=== PATIENT | female | born 1965 | race Caucasian/White ===

== ENCOUNTER → 2016-10-12 | Outpatient (CLI) | payer BC ==
--- NOTE | 2016-10-12 09:01 | USB ---
Reason for exam: clinical finding. History: Family history of breast cancer in paternal grandmother and breast cancer in paternal aunt. Benign US biopsy breast VAD LT of the left breast, March 08, 2016. Taking hormonal contraceptives beginning at age 19. Indicated problem(s): other indicated problem in the left breast. Physical Findings: Nurse did not find any significant physical abnormalities on exam. US Breast LT Left breast ultrasound including all four quadrants, the retroareolar region and axilla demonstrates a 1.2 x 0.5 x 0.9cm oval, hypoechoic lesion at 11 o'clock, clip seen. Findings compatible with the previously biopsied benign lesion. These results were verbally communicated with the patient and result sheet given to the patient on 10/12/16. ASSESSMENT: Benign, BI-RAD 2 RECOMMENDATION: Return to routine screening mammogram schedule for both breasts. Back on schedule.
== END | disposition home or self-care (01) ==
LOC: RADUSWWP 08:05
PROVIDERS: ATTEND Obstetrics & Gynecology
DX: R92.8 Other abnormal and inconclusive findings on diagnostic imaging of breast (principal)

== ENCOUNTER → 2017-04-16 | Outpatient (CLI) | payer BC ==
--- NOTE | 2017-04-18 11:15 | MM ---
Reason for exam: screening (asymptomatic). Last mammogram was performed 1 year and 1 month ago. History: Family history of breast cancer in paternal grandmother and breast cancer in paternal aunt. Benign US biopsy breast VAD LT of the left breast, March 08, 2016. Taking hormonal contraceptives beginning at age 19. Physical Findings: A clinical breast exam by your physician is recommended on an annual basis and results should be correlated with mammographic findings. MG Screening Mammo w CAD Bilateral CC and MLO view(s) were taken. Prior study comparison: March 08, 2016, left breast MG diagnostic mammo LT wo CAD. March 08, 2016, left breast MG 3d work up w/cad LT. The breast tissue is heterogeneously dense. This may lower the sensitivity of mammography. There is no discrete abnormality. ASSESSMENT: Negative, BI-RAD 1 RECOMMENDATION: Routine screening mammogram of both breasts in 1 year.
== END | disposition home or self-care (01) ==
LOC: RADMAMWWP 16:19
PROVIDERS: ATTEND Obstetrics & Gynecology
DX: Z12.31 Encounter for screening mammogram for malignant neoplasm of breast (principal)

== ENCOUNTER → 2018-01-21 | Outpatient (CLI) | payer BC ==
[2018-01-21 17:28] LABS: Basophils # (A) 0.1 k/uL (0-0.2); Basophils % (A) 1 %; Eosinophils # (A) 0.1 k/uL (0-0.7); Eosinophils % (A) 1 %; HCT 38.7 % (34.0-46.0); HGB 13.2 gm/dL (11.4-16.0); Lymphocytes # (A) 2.8 k/uL (1.0-4.8); Lymphocytes % (A) 35 %; MCH 29.6 pg (25.0-35.0); MCHC 34.1 g/dL (31.0-37.0); MCV 86.8 fL (80.0-100.0); Monocytes # (A) 0.4 k/uL (0-1.0); Monocytes % (A) 4 %; Neutrophils # (A) 4.7 k/uL (1.3-7.7); Neutrophils % (A) 57 %; Platelet Count 275 k/uL (150-450); RBC 4.45 m/uL (3.80-5.40); RDW 12.9 % (11.5-15.5); WBC 8.1 k/uL (3.8-10.6)
[2018-01-21 17:37] LABS: Anion Gap 13 mmol/L; Blood Urea Nitrogen 10 mg/dL (7-17); Carbon Dioxide 26 mmol/L (22-30); Chloride 103 mmol/L (98-107); Glucose 108 mg/dL (74-99); Potassium 4.1 mmol/L (3.5-5.1); Sodium 142 mmol/L (137-145)
== END | disposition home or self-care (01) ==
LOC: LABPAT 16:51
PROVIDERS: ATTEND Obstetrics & Gynecology
DX: Z01.812 Encounter for preprocedural laboratory examination (principal); D25.9 Leiomyoma of uterus, unspecified; N94.6 Dysmenorrhea, unspecified
CPT/HCPCS: 36415; 80051; 82565; 82947; 84520; 85025; 87086

== ENCOUNTER 2018-01-28 05:47 | Observation (INO) | payer BC ==
[2018-01-17 11:02] VITALS: BMI 28.8
--- NOTE | 2018-01-27 16:15 | HP ---
HISTORY AND PHYSICAL DATE OF SURGERY: 01/28/2018 This is a 52-year-old white female who has a known history of fibroid uterus. In particular, there is a 6 cm posterior uterine fibroid noted. Sonogram suggests normal- appearing ovaries bilaterally. The patient has had a tubal ligation. She complains of very heavy painful periods, and has a history of NovaSure endometrial ablation. I suspect the patient has adenomyosis, and after thorough consultation, she is electing to proceed with vaginal hysterectomy, having given to 2 large infants vaginally in the past. We have discussed the possibility of the need for abdominal hysterectomy, and to this she consents. She would like to have the ovaries stay in situ if they appear normal to inspection. PAST MEDICAL HISTORY: 1. Sleep disturbance. 2. Generalized hyperhidrosis. 3. Fibroid uterus. PAST SURGICAL HISTORY: 1. Endometrial ablation in 2014. 2. Rectocele repair in 1998. 3. Tubal ligation in 2014. 4. Diagnostic colonoscopy negative. 5. Patient has also had her adenoids removed. CURRENT MEDICATIONS: 1. Krill oil 500 mg oral capsules once daily. 2. Vitamin B12 and vitamin D orally daily. ALLERGIES: PENICILLIN, to which reports a rash. She also has SEASONAL ALLERGIES. FAMILY HISTORY: Significant for breast cancer, dementia, diabetes, endometriosis, hyperthyroidism, and Parkinson's disease. REPRODUCTIVE HISTORY: Significant for normal spontaneous vaginal deliveries x2 in the , both unremarkable. SOCIAL HISTORY: Patient's 's name is Jake. She has never been a tobacco smoker. She works for [employer] in [place], [place]. She denies drug use, admits to 1-4 alcoholic beverages daily. PHYSICAL EXAMINATION: This is a pleasant white female. She is 5 feet 5 inches, 174 pounds, BMI 29, blood pressure 110/80. HEENT exam reveals good dentition. No thyromegaly. No cervical lymphadenopathy. Chest is clear to auscultation in all trevizo. Cardiac exam reveals regular rate and rhythm with no murmur, click or rub. Abdomen is nontender. No organosplenomegaly. Active bowel sounds. No CVA tenderness. Extremities reveal no edema. There are good peripheral pulses. On pelvic exam, cervix is multiparous. Uterus is retroverted and retroflexed with a 6 cm posterior uterine fibroid; otherwise smooth and nontender. Adnexa are negative bilaterally. Rectal exam reveals no masses. FIT negative stool. The fibroid uterus is noted through the rectal wall. IMPRESSION: Fibroid uterus, severe dysmenorrhea, suspect adenomyosis. Patient requesting vaginal hysterectomy. PLAN: We will proceed with vaginal hysterectomy. Patient also consents to bilateral salpingo- oophorectomy if the ovaries appear abnormal to inspection. She also consents to total abdominal hysterectomy if I am unable to remove the uterus vaginally. The risks of anesthesia, aspiration, nerve damage, , risk of bleeding, infection, damage to the bowel or rectum, especially in light of the previous rectocele repair, damage to bladder and ureters are all discussed in detail. The ACOG pamphlet on hysterectomy is given to the patient for her review. I believe the patient understands our discussion, plan and potential changes to the plan as detailed. Please note that second opinion is offered and declined. MMDINAHL / IJN: [id number] /
[~2018-01-28 05:47] MED LIST: DEXAMETHASONE SOD PHOSPHATE 10 MG/ML 1 ML VIAL IV ONE; LIDOCAINE 1% 20 ML VIAL (10MG/ML) FOR IV START INTRADERMA PRN; MIDAZOLAM 2 MG/2 ML VIAL IV PRN; MORPHINE SULFATE 4 MG/ML SYRINGE IV PRN; ONDANSETRON 4 MG/2 ML VIAL IVP ONE; SCOPOLAMINE 1.5MG/72HR PATCH TRANSDERM ONE; ceFAZolin IN SWFI 2 GM/20 ML SYRINGE IVP ONE
[2018-01-28] MEDS: LACTATED RINGERS 1,000 ML IV SCH ×2 (06:44→19:30)
[2018-01-28] MEDS ORDERED: LIDOCAINE 1% 20 ML VIAL (10MG/ML) FOR IV START INTRADERMA ONE (06:44)
[2018-01-28] MEDS ORDERED: MORPHINE SULFATE (PF) 0.3 MG/0.3 ML SYR ONE (07:30)
[2018-01-28] MEDS ORDERED: PROPOFOL 10 MG/ML 20 ML VIAL IV ONE (07:30)
[2018-01-28] MEDS ORDERED: LABETALOL 5 MG/ML VIAL MDV ONE (07:30)
[2018-01-28] MEDS ORDERED: MIDAZOLAM 2 MG/2 ML VIAL ONE (07:30)
[2018-01-28] MEDS ORDERED: fentaNYL (PF) 50 MCG/ML 2 ML AMP ONE (07:30)
[2018-01-28] MEDS ORDERED: VASOPRESSIN 20 UNIT/ML 1 ML VIAL SQ ONE (07:55)
[2018-01-28] MEDS ORDERED: BACITRACIN 500 UNIT/GM OINT 28.4 GM TUBE TOPICAL ONE ×2 (07:56→08:46)
[2018-01-28] MEDS ORDERED: LACTATED RINGERS 1,000 ML IV ONE (08:30)
[2018-01-28] MEDS ORDERED: NALOXONE 0.4 MG/ML 1 ML VIAL IV PRN (08:40)
[2018-01-28] MEDS ORDERED: MORPHINE SULFATE 4 MG/ML SYRINGE IVP PRN (08:40)
[2018-01-28] MEDS ORDERED: SIMETHICONE 80 MG CHEWABLE PO PRN (09:00)
[2018-01-28] MEDS ORDERED: Acetaminophen-Codeine 300-30mg TAB PO PRN (09:00)
[2018-01-28] MEDS ORDERED: diphenhydrAMINE 50 MG/ML 1 ML VIAL IVP PRN (09:00)
[2018-01-28] MEDS ORDERED: METOCLOPRAMIDE 5 MG/ML 2 ML VIAL IVP PRN (09:00)
[2018-01-28] MEDS ORDERED: ONDANSETRON 4 MG/2 ML VIAL IVP PRN (09:00)
[2018-01-28] MEDS ORDERED: ZOLPIDEM 5 MG TAB PO PRN (09:00)
--- NOTE | 2018-01-28 09:00 | P.OP ---
Date of Procedure: 01/28/18 Preoperative Diagnosis: Severe dysmenorrhea, fibroid uterus. Suspect adenomyosis Postoperative Diagnosis: Normal-appearing ovaries bilaterally Procedure(s) Performed: Vaginal hysterectomy Anesthesia: spinal Surgeon: Morelia Vaughan Computer Programming Supervisor #1: Bertrand Zuniga Estimated Blood Loss (ml): 200 IV fluids (ml): 900 Urine output (ml): 200 Pathology: other (cervix and uterus) Operative Findings: normal ovaries bilaterally Description of Procedure: Patient is brought to the operating suite where a spinal with Duramorph is placed without issue. She is been put in the dorsal lithotomy position, the cervix, vagina, perineal body and lower abdominal wall prepped and draped in usual sterile fashion. The appropriate timeout is performed to assure proper patient and procedural identification. Antibiotics are given. Urine test is negative. The bladder is drained for approximately 200 mL of clear yellow urine. Weighted speculum was placed into the vagina. Anterior lip of the cervix is grasped with a double-tooth tenaculum. Cervix is injected circumferentially with dilute Pitressin solution. A scalpel is used circumferentially to incise the mucosa with a V like positioning in the back, at 6:00. A sponge rolled finger is used to sweep the mucosa well from the operative field to at all times avoid rectal, bladder or ureteral injury. The peritoneum is entered at 6: 00 and suture tied with 2-0 Vicryl. The large billed speculum is then placed. The right uterosacral cardinal ligament is identified, clamped suture tied with 0 Vicryl and held laterally. The same thing is carried out on the opposite uterosacral cardinal ligament, this is also held with a hemostat. Uterine vasculature is identified, clamped cut and suture ligated. 2 additional pedicles are taken superior to the vessels on each side, each time figure-of- eight suture placed with 0 Vicryl. Anterior peritoneum was then entered, the uterus is "walked out" posteriorly. A very large dominant fibroid is noted. The remaining pedicles are clamped with Paul clamps and the specimen is removed. Sponge stick is now used to evaluate both ovaries, they are. Normal and therefore left in situ. The pedicles are tied with 0 Vicryl, flashed, retied. At this time all pedicles are reevaluated, hemostasis is noted to be excellent. The speculum is replaced with the shallow billed speculum. The 2-0 Vicryl suture that was placed at 6:00 is then brought around circumferentially to close the peritoneal cavity. The chest 0 Vicryl sutures held on the uterosacral ligament clamps are then brought across to incorporate the opposite ligament as well as vaginal mucosa. Additional fdafde-xi-keetu sutures are used to close the vaginal cough for excellent reapproximation. The vagina is packed with one-inch iodophor gauze with basic tracing. Lockwood catheter is placed and urine is noted to be clear. All sponge needle and enhancement counts are correct. Patient is brought back to the recovery room in stable condition with a blood pressure 118/75, pulse 74. All sponge needle and enhancement counts are correct at the end of the procedure.
[2018-01-28] MEDS: KETOROLAC 30 MG/ML 1 ML VIAL IVP PRN ×3 (09:19→21:04)
[2018-01-28] MEDS: diphenhydrAMINE 50 MG/ML 1 ML VIAL IVP PRN ×2 (11:11→19:35)
[2018-01-29] MEDS: diphenhydrAMINE 50 MG/ML 1 ML VIAL IVP PRN (02:37)
--- NOTE | 2018-01-29 07:19 | P.DS ---
Providers Date of admission: 01/29/18 00:36 Expected date of discharge: 01/29/18 Attending physician: Morelia Vaughan Primary care physician: Shantal Loring Hospital Course: Is a 52 year-old white female who presented with severe dysmenorrhea. She has a known fibroid uterus, and a history of NovaSure endometrial ablation. Presumptive diagnosis of adenomyosis was made and patient after consultation elected to proceed with vaginal hysterectomy. Please see my dictated history and physical for details. She underwent vaginal hysterectomy, ovaries appeared normal and therefore were left in situ per her wishes. Surgery went well, vagina packed with iodoform gauze, Lockwood catheter placed. Patient has done well postoperatively. This morning the vaginal packing and the Lockwood catheter has been removed. Pain is well-controlled. There is no vaginal bleeding. Vital signs are stable and she is afebrile. Her diet and activity had been advanced. I believe she is in very good condition for discharge home. Pending progress this morning, patient will be discharged home. She will follow-up with me in the office in 2 weeks. She is reminded no intercourse, tampons or douching. She will use aurq-rlj-xnsstud ibuprofen products as needed for pain, Advil or Aleve as recommended on the bottle, or 200 mg ibuprofen pills, 3 every 6 hours as needed. No heavy lifting, no driving for 2 weeks. No vacuuming for 2 weeks. She will call with any vaginal bleeding, any pain not alleviated by ahmq-fkz-lsrdlmk products, any issues with voiding or stool passage, or indeed with any unusual problems or concerns. Pathology pending at the time of this report. Patient Condition at Discharge: Good Plan - Discharge Summary Discharge Rx Participant: Yes New Discharge Prescriptions: No Action Albuterol Sulfate [Ventolin HFA] 2 puff INHALATION DAILY PRN PRN Reason: Allergy Symptoms Fluticasone Nasal [place] [Flonase Nasal [place]] 2 spr EA NOSTRIL DAILY PRN PRN Reason: ALLERGY SX Cetirizine HCl [Zyrtec] 10 mg PO DAILY Discharge Medication List Albuterol Sulfate [Ventolin HFA] 2 puff INHALATION DAILY PRN 05/25/15 [History] Cetirizine HCl [Zyrtec] 10 mg PO DAILY 01/17/18 [History] Fluticasone Nasal [place] [Flonase Nasal [place]] 2 spr EA NOSTRIL DAILY PRN [History] Follow up Appointment(s)/Referral(s): Morelia Vaughan MD [STAFF PHYSICIAN] - 2 Weeks
[2018-01-29] MEDS: IBUPROFEN 600 MG TAB PO PRN ×2 (07:38→12:38)
[2018-01-29 07:47] VITALS: BP 116/71; PULSE 78; RESP 18; TEMP 97
== END 2018-01-29 12:45 | disposition home or self-care (01) ==
LOC: OR 05:47 → 6PED 09:00 → OR 01-29 00:36
PROVIDERS: ADMIT Obstetrics & Gynecology; ATTEND Obstetrics & Gynecology
DX: N80.0 Endometriosis of uterus (principal); D25.9 Leiomyoma of uterus, unspecified; N94.6 Dysmenorrhea, unspecified; G47.9 Sleep disorder, unspecified; J45.909 Unspecified asthma, uncomplicated; Z98.51 Tubal ligation status; Z88.0 Allergy status to penicillin; Z83.3 Family history of diabetes mellitus; Z82.0 Family history of epilepsy and other diseases of the nervous system; Z80.3 Family history of malignant neoplasm of breast; Z83.49 Family history of other endocrine, nutritional and metabolic diseases
CPT/HCPCS: 58260; 81025; 86900; 86901; 86850; 88307; G0378; J2250; J2270; J1200 ×2; J1100; J2405; J2274; J3010; J1885; J2704; J0690

== ENCOUNTER → 2018-06-06 | Outpatient (CLI) | payer BC ==
--- NOTE | 2018-06-09 11:27 | MM ---
Reason for exam: screening (asymptomatic). Last mammogram was performed 1 year and 2 months ago. History: Patient is postmenopausal. Family history of breast cancer in paternal grandmother and breast cancer in paternal aunt. Benign US biopsy breast VAD LT of the left breast, March 08, 2016. Took hormonal contraceptives beginning at age 19. Physical Findings: A clinical breast exam by your physician is recommended on an annual basis and results should be correlated with mammographic findings. MG 3D Screening Mammo W/Cad Bilateral CC and MLO view(s) were taken. Prior study comparison: April 16, 2017, bilateral MG screening mammo w CAD. March 08, 2016, left breast MG diagnostic mammo LT wo CAD. The breast tissue is heterogeneously dense. This may lower the sensitivity of mammography. Previous mammotome biopsy in the left breast. No significant changes when compared with prior studies. ASSESSMENT: Benign, BI-RAD 2 RECOMMENDATION: Routine screening mammogram of both breasts in 1 year.
== END | disposition home or self-care (01) ==
LOC: RADMAMWWP 10:10
PROVIDERS: ATTEND Obstetrics & Gynecology
DX: Z12.31 Encounter for screening mammogram for malignant neoplasm of breast (principal); Z80.3 Family history of malignant neoplasm of breast
CPT/HCPCS: 77063; 77067

== ENCOUNTER 2018-09-09 03:02 | Emergency (ER) | payer BC ==
[2018-09-09 03:14] VITALS: RESP 18
[2018-09-09] MEDS ORDERED: IPRATROPIUM-ALBUTEROL 3 ML NEB INHALATION STA (03:40)
--- NOTE | 2018-09-09 03:53 | ED ---
General Adult HPI - General Chief complaint: Upper Respiratory Infection Stated complaint: URI Time Seen by Provider: 09/09/18 03:13 Source: patient Mode of arrival: ambulatory Limitations: no limitations - History of Present Illness Initial comments: Wei is a pleasant 53-year-old female who presents the emergency department today for evaluation of URI-like symptoms. Patient reports she's had nasal congestion, rhinorrhea, postnasal drip, minimally productive cough and subjective fevers for approximately 5 days duration. Patient does admit that she had an old prescription for 500 mg of azithromycin daily which she took for the past 4 days with minimal improvement in her symptoms. Patient reports she' s also been taking jodr-sre-[id number] medications including Delsym and a decongestant which she took today. Patient states in the past decongestants caused her blood pressure to be very elevated and she knows it was high on arrival today and attributes this to the decongestant. Patient reports that despite maxing out medication she still symptomatic which prompted her come to ER for evaluation. Denies any chest pain, exertional symptoms. She denies any shortness of breath with this cough and malaise. Patient is fully vaccinated and did receive her flu vaccine this year. - Related Data Home Medications Medication Instructions Recorded Confirmed Albuterol Sulfate [Ventolin HFA] 2 puff INHALATION DAILY PRN 05/25/15 01/29/18 Cetirizine HCl [Zyrtec] 10 mg PO DAILY 01/17/18 01/29/18 Fluticasone Nasal [place] [Flonase 2 spr EA NOSTRIL DAILY PRN 01/17/18 01/29/18 Nasal [place]] Previous Rx's Medication Instructions Recorded Benzonatate [Tessalon Perles] 100 mg PO TID #12 cap 09/09/18 Doxycycline [Vibramycin] 100 mg PO BID #14 cap 09/09/18 Fluticasone Nasal [place] [Flonase 1 spray EA NOSTRIL DAILY #1 bottle 09/09/18 Nasal [place]] Allergies Allergy/AdvReac Type Severity Reaction Status Date / Time Penicillins Allergy Intermediate Rash/Hives Verified 01/29/18 22:25 Review of Systems ROS Statement: Those systems with pertinent positive or pertinent negative responses have been documented in the HPI. ROS Other: All systems not noted in ROS Statement are negative. Past Medical History Past Medical History: Skin Disorder Additional Past Medical History / Comment(s): ALLERGY SYMPTOMS; HX ALLERGY SHOTS. PREV HX OF MILD ELEV BLOOD PRESSURE, ONLY TOOK RX FOR FEW MONTHS, 2016 EST. SM HEMANGIOMAS RT UPPER LEG. UTERINE FIBROIDS. History of Any Multi-Drug Resistant Organisms: None Reported Past Surgical History: Tubal Ligation, Uterine Ablation Additional Past Surgical History / Comment(s): COLONOSCOPY. SINUS SURG. Past Anesthesia/Blood Transfusion Reactions: Postoperative Nausea & Vomiting ( PONV) Past Psychological History: No Psychological Hx Reported Smoking Status: Former smoker Past Alcohol Use History: Occasional Past Drug Use History: None Reported - Past Family History Mother Family Medical History: Congestive Heart Failure (CHF), Diabetes Mellitus General Exam - General Exam Comments Initial Comments: Physical Exam GENERAL: Patient is well-developed and well-nourished. Patient is nontoxic and well- hydrated and is in no distress. Appears fatigued HENT: Normocephalic, Atraumatic. EYES: PERRL, EOMI PULMONARY: Crackles CARDIOVASCULAR: There is a regular rate and rhythm without any murmurs gallops or rubs. ABDOMEN: Soft and nontender with normal bowel sounds. SKIN: Skin is warm and clammy : Deferred NEUROLOGIC: Patient is alert and oriented x3. Moving all extremities spontaneously MUSCULOSKELETAL: Normal extremities with adequate strength and full range of motion. No lower extremity swelling or edema. No calf tenderness. PSYCHIATRIC: Normal psychiatric evaluation. Limitations: no limitations Limitations: no limitations Course Vital Signs 09/09/18 09/09/18 09/09/18 03:10 03:50 03:55 Temperature 98.1 F Pulse Rate 100 100 104 H Respiratory 18 Rate Blood Pressure 173/83 O2 Sat by Pulse 98 Oximetry 09/09/18 04:58 Temperature 98 F Pulse Rate 90 Respiratory 18 Rate Blood Pressure 155/84 O2 Sat by Pulse 96 Oximetry Medical Decision Making - Medical Decision Making Patient was seen and evaluated history was obtained from the patient and at bedside Patient with a few days of URI-like symptoms, subjective fevers, generalized malaise Chest x-ray as well as a swab and DuoNeb were ordered X-ray confirms a left lower lobe pneumonia, patient is comfortable with the plan for outpatient management with oral antibiotics. Patient did take some azithromycin, I will prescribe her doxycycline. All questions pertaining care were answered return parameters were discussed and the patient was discharged home in stable condition. - Lab Data Lab Results 09/09/18 Range/Units 03:44 Influenza Type A RNA Not Detected (Not Detectd) Influenza Type B (PCR) Not Detected (Not Detectd) Disposition Clinical Impression: LLL pneumonia Disposition: HOME SELF-CARE Condition: Good Instructions: Bacterial Pneumonia (ED), Bacterial Pneumonia (DC) Prescriptions: Benzonatate [Tessalon Perles] 100 mg PO TID #12 cap Doxycycline [Vibramycin] 100 mg PO BID #14 cap Fluticasone Nasal [place] [Flonase Nasal [place]] 1 spray EA NOSTRIL DAILY #1 bottle Is patient prescribed a controlled substance at d/c from ED?: No Referrals: Shantal Griffith MD [Primary Care Provider] - 1-2 days
--- NOTE | 2018-09-09 04:01 | XR ---
EXAMINATION TYPE: XR chest 2V DATE OF EXAM: 09/09/2018 COMPARISON: NONE HISTORY: Cough and congestion TECHNIQUE: Frontal and lateral views of the chest are obtained. FINDINGS: Heart and mediastinum are normal. There is a minimal infiltrate in the left lower lobe. Th e other lung trevizo are clear. Diaphragm is normal. Bony thorax appears normal. IMPRESSION: Small left lower lobe pneumonia.
[2018-09-09] MEDS ORDERED: DOXYCYCLINE 100 MG CAP PO STA (04:17)
[2018-09-09] MEDS ORDERED: BENZONATATE 100 MG CAP PO STA (04:18)
[2018-09-09 04:59] VITALS: BP 155/84; PULSE 90; TEMP 98
== END 2018-09-09 04:58 | disposition home or self-care (01) ==
LOC: EC 03:02
DX: J18.1 Lobar pneumonia, unspecified organism (principal); Z79.899 Other long term (current) drug therapy; Z88.0 Allergy status to penicillin; Z87.891 Personal history of nicotine dependence
CPT/HCPCS: 71046; 87502; 94640; 99284

== ENCOUNTER → 2019-06-30 | Outpatient (CLI) | payer BC ==
--- NOTE | 2019-07-02 08:34 | MM ---
Reason for exam: screening (asymptomatic). Last mammogram was performed 1 year and 1 month ago. History: Patient is postmenopausal. Family history of breast cancer in paternal grandmother and breast cancer in paternal aunt. Benign US biopsy breast VAD LT of the left breast, March 08, 2016. Took hormonal contraceptives for 30 years beginning at age 19. Physical Findings: A clinical breast exam by your physician is recommended on an annual basis and results should be correlated with mammographic findings. MG 3D Screening Mammo W/Cad Bilateral CC and MLO view(s) were taken. Prior study comparison: June 06, 2018, bilateral MG 3d screening mammo w/cad. April 16, 2017, bilateral MG screening mammo w CAD. The breast tissue is heterogeneously dense. This may lower the sensitivity of mammography. Previous mammotome biopsy in the left breast. No significant changes when compared with prior studies. ASSESSMENT: Benign, BI-RAD 2 RECOMMENDATION: Routine screening mammogram of both breasts in 1 year.
== END | disposition home or self-care (01) ==
LOC: RADMAMWWP 14:53
PROVIDERS: ATTEND Obstetrics & Gynecology
DX: Z12.31 Encounter for screening mammogram for malignant neoplasm of breast (principal); Z80.3 Family history of malignant neoplasm of breast
CPT/HCPCS: 77063; 77067

== ENCOUNTER → 2019-11-16 | Outpatient (CLI) | payer BC ==
[2019-11-16 07:50] LABS: Basophils % (A) 0 %; Eosinophils # (A) 0.1 k/uL (0-0.7); Eosinophils % (A) 1 %; HCT 44.1 % (34.0-46.0); HGB 14.4 gm/dL (11.4-16.0); Lymphocytes # (A) 2.4 k/uL (1.0-4.8); Lymphocytes % (A) 34 %; MCH 29.9 pg (25.0-35.0); MCHC 32.5 g/dL (31.0-37.0); MCV 91.9 fL (80.0-100.0); Mean Platelet Volume 7.5; Monocytes # (A) 0.4 k/uL (0-1.0); Monocytes % (A) 5 %; Neutrophils # (A) 4.3 k/uL (1.3-7.7); Neutrophils % (A) 59 %; Platelet Count 286 k/uL (150-450); RBC 4.81 m/uL (3.80-5.40); RDW 12.5 % (11.5-15.5); WBC 7.3 k/uL (3.8-10.6)
[2019-11-16 11:23] LABS: % Iron Saturation 23.73 (12.00-45.00); African American GFR (CKD) 96.9 (60.0-200.0); Albumin 4.6 g/dL (3.80-4.90); Albumin/Globulin Ratio 1.92 (1.60-3.17); Anion Gap 3.7 mmol/L (4.00-12.00); Calcium 9.2 mg/dL (8.7-10.3); Carbon Dioxide 27.3 mmol/L (21.6-31.8); Chol/HDL Ratio 3.37; Globulin 2.4 g/dL (1.6-3.3); LDL Cholesterol,Calculated 124.2 mg/dL (0.0-131.0); Magnesium 2.3 mg/dL (1.5-2.4); Non-African American GFR(CKD) 83.6 (60.0-200.0); Potassium 4.5 mmol/L (3.5-5.5); Total Bilirubin 0.7 mg/dL (0.3-1.2); VLDL Calculation 34.8 mg/dL (5.00-40.00)
[2019-11-16 11:34] LABS: Ferritin 100.6 ng/mL (10.0-291.0)
[2019-11-16 14:59] LABS: Hemoglobin A1C 5.5 % (4.0-6.0)
== END | disposition home or self-care (01) ==
LOC: LABWHC1 06:38
PROVIDERS: ATTEND Family Medicine
DX: Z00.00 Encounter for general adult medical examination without abnormal findings (principal); I10 Essential (primary) hypertension; G47.00 Insomnia, unspecified; N92.4 Excessive bleeding in the premenopausal period; E55.9 Vitamin D deficiency, unspecified; R20.2 Paresthesia of skin
CPT/HCPCS: 36415; 80053; 80061; 82306; 82607; 82728; 83036; 83540; 83550; 83735; 84443; 85025

== ENCOUNTER → 2020-11-07 | Outpatient (CLI) | payer BC ==
--- NOTE | 2020-11-08 09:43 | MM ---
Reason for exam: screening (asymptomatic). Last mammogram was performed 1 year and 4 months ago. History: Patient is postmenopausal. Family history of breast cancer in paternal grandmother and breast cancer in paternal aunt. Benign US biopsy breast VAD LT of the left breast, March 08, 2016. Took hormonal contraceptives for 30 years beginning at age 19. Physical Findings: A clinical breast exam by your physician is recommended on an annual basis and results should be correlated with mammographic findings. MG 3D Screening Mammo W/Cad Bilateral CC and MLO view(s) were taken. Prior study comparison: June 30, 2019, bilateral MG 3d screening mammo w/cad. June 06, 2018, bilateral MG 3d screening mammo w/cad. The breast tissue is heterogeneously dense. This may lower the sensitivity of mammography. There are benign appearing round, regional calcifications in the left breast near clip. Previous mammotome biopsy in the left breast. There is no discrete abnormality. ASSESSMENT: Benign, BI-RAD 2 RECOMMENDATION: Routine screening mammogram of both breasts in 1 year.
== END | disposition home or self-care (01) ==
LOC: RADMAMWWP 16:16
PROVIDERS: ATTEND Obstetrics & Gynecology
DX: Z12.31 Encounter for screening mammogram for malignant neoplasm of breast (principal); Z80.3 Family history of malignant neoplasm of breast
CPT/HCPCS: 77063; 77067

== ENCOUNTER → 2020-12-12 | Outpatient (CLI) | payer BC ==
--- NOTE | 2020-12-12 10:08 | CT ---
EXAMINATION TYPE: CT heart w calcium score DATE OF EXAM: 12/12/2020 COMPARISON: HISTORY: Screening for cardiovascular disorder. 213.9 CT DLP: 74.1 mGycm Automated exposure control for dose reduction was used. CT CALCIUM SCORING Coronary calcium is a marker for plaque (fatty deposits) in a blood vessel or atherosclerosis (harden ing of the arteries). The presence and amount of calcium detected in a coronary artery by the CT sca n, indicates the presence and amount of atherosclerotic plaque. These calcium deposits appear years before the development of heart disease symptoms such as chest pain and shortness of breath. A calcium score is computed for each of the coronary arteries based upon the volume and density of th e calcium deposits. This can be referred to as your calcified plaque burden. It does not correspond directly to the percentage of narrowing in the artery but does correlate with the severity of the un derlying coronary atherosclerosis. PROCEDURE TECHNIQUE - Prospective Gating was used. Slice thickness: 3mm. Density threshold (HU): 130, Pixel threshold: 3, Algorithm: discrete. RESULTS Region: LM Calcium Score ([place]): 0 Volume (mm3): 0 Mass (g): 0 Region: RCA Calcium Score ([place]): 0 Volume (mm3): 0 Mass (g): 0 Region: LAD Calcium Score ([place]): 0 Volume (mm3): 0 Mass (g): 0 Region: CX Calcium Score ([place]): 0 Volume (mm3): 0 Mass (g): 0 Region: PDA Calcium Score ([place]): 0 Volume (mm3): 0 Mass (g): 0 Total: Calcium Score ([place]): 0 Volume (mm3): 0 Mass (g): 0 TOTAL CALCIUM SCORE: 0 IMPRESSION: Calcium Score: 0 Implication: No identifiable plaque. Risk of Coronary Artery Disease: Very low risk of coronary artery disease generally less than 5% CALCIUM SCORE IMPLICATION RISK OF C ORONARY ARTERY DISEASE 0 No identifiable plaque Very low, generally less than 5% 1-10 Minimal identifiable plaque Very unlikely, less than 10% 11-100 Definite, at least mild atherosclerotic plaque Mild or m inimal coronary narrowings likely 101-400 Definite, at least moderate atherosclerotic plaque Mild coronary ar ruben disease highly likely, significant narrowing possible 401 or Higher Extensive atherosclerotic plaque High lik elihood of at least one significant coronary narrowing
== END | disposition home or self-care (01) ==
LOC: RADCTMAIN 08:53
PROVIDERS: ATTEND Nurse Practitioner
DX: I25.10 Atherosclerotic heart disease of native coronary artery without angina pectoris (principal)
CPT/HCPCS: 75571

== ENCOUNTER → 2021-11-09 | Outpatient (CLI) | payer BC ==
--- NOTE | 2021-11-10 11:41 | MM ---
Reason for exam: additional evaluation requested from prior study. Last mammogram was performed 1 year ago. History: Patient is postmenopausal. Family history of breast cancer in paternal grandmother and breast cancer in paternal aunt. Benign US biopsy breast VAD LT of the left breast, March 08, 2016. Took hormonal contraceptives for 30 years beginning at age 19. Physical Findings: Nurse did not find any significant physical abnormalities on exam. MG 3D Diag Mammo W/Cad SARAH Bilateral CC and MLO view(s) were taken. Prior study comparison: November 07, 2020, bilateral MG 3d screening mammo w/cad. June 30, 2019, bilateral MG 3d screening mammo w/cad. The breast tissue is heterogeneously dense. This may lower the sensitivity of mammography. Previous mammotome biopsy in the left breast and stable focal asymmetry. No significant new findings when compared with previous films. These results were verbally communicated with the patient and result sheet given to the patient on 11/09/21. ASSESSMENT: Incomplete: need additional imaging evaluation, BI-RAD 0 RECOMMENDATION: Ultrasound of both breasts. (given patient's history of gene mutation)
--- NOTE | 2021-11-10 11:47 | USB ---
Reason for exam: additional evaluation requested from abnormal screening. History: Patient is postmenopausal. Family history of breast cancer in paternal grandmother and breast cancer in paternal aunt. Benign US biopsy breast VAD LT of the left breast, March 08, 2016. Took hormonal contraceptives for 30 years beginning at age 19. US Breast BILAT Technologist: Lois Dorado Right complete breast ultrasound includes all four quadrants, the retroareolar region and axilla. Finding demonstrates a 0.9 x 0.7 x 0.4cm possible collapsed cyst at 7 o'clock, 6 month follow up recommended and a 0.7 x 0.7 x 0.4cm suspected cyst cluster at 4 o'clock, 6 month follow up recommended. Left complete breast ultrasound includes all four quadrants, the retroareolar region and axilla. Finding demonstrates a 1.6 x 1.4 x 0.7cm hypoechoic lesion at 11 o'clock, previous biopsy site with clip. These results were verbally communicated with the patient and result sheet given to the patient on 11/09/21. ASSESSMENT: Probably benign, BI-RAD 3 RECOMMENDATION: Ultrasound of the right breast in 6 months. (4 and 7 o'clock)
== END | disposition home or self-care (01) ==
LOC: RADMAMWWP 14:40
PROVIDERS: ATTEND Obstetrics & Gynecology
DX: Z15.89 Genetic susceptibility to other disease (principal); Z15.09 Genetic susceptibility to other malignant neoplasm; R92.8 Other abnormal and inconclusive findings on diagnostic imaging of breast
CPT/HCPCS: 77062; 77066

== ENCOUNTER 2021-11-21 09:12 | Day surgery (SDC) | payer BC ==
[2021-11-17 13:48] VITALS: BMI 29.2
[2021-11-21] MEDS ORDERED: LACTATED RINGERS 1,000 ML IV SCH (09:23)
[2021-11-21] MEDS ORDERED: LIDOCAINE 1% (10MG/ML) FOR IV START INTRADERMA PRN (09:23)
[2021-11-21 09:35] VITALS: TEMP 98.9
[2021-11-21] MEDS ORDERED: ONDANSETRON 4 MG/2 ML VIAL ONE (09:42)
[2021-11-21] MEDS ORDERED: ONDANSETRON 4 MG/2 ML VIAL IVP ONE (09:43)
[2021-11-21] MEDS ORDERED: PROPOFOL 10 MG/ML 20 ML VIAL IV ONE (09:47)
[2021-11-21] MEDS ORDERED: LIDOCAINE 1% INJ 10MG/ML (20 ML MDV) ONE (09:47)
--- NOTE | 2021-11-21 10:08 | P.PCN ---
Date of Procedure: 11/21/21 Procedure(s) Performed: BRIEF HISTORY: Patient is a 56-year-old pleasant female scheduled for an elective colonoscopy as a part of screening for colorectal neoplasia. She recently had an acute testing done because of family history of breast cancer and was told that has increased risk of colon cancer also. Last colonoscopy was 5 years ago. PROCEDURE PERFORMED: Colonoscopy snare polypectomy and Endo Clip placement PREOPERATIVE DIAGNOSIS: Screening for colon cancer. IV sedation per Anesthesia. PROCEDURE: After informed consent was obtained, the patient, was brought into the endoscopy unit. IV sedation was administered by Anesthesia under continuous monitoring. Digital rectal examination was normal. Initially the Olympus CF-160 flexible video colonoscope was then inserted in the rectum, gradually advanced into the cecum without any difficulty. Careful examination was performed as the scope was gradually being withdrawn. Ileocecal valve and the appendiceal orifice were visualized and appeared normal. Prep was excellent. Mucosa of the cecum appeared normal. Ascending colon there was a 1.5 cm broad-based polyp that was removed by snare polyp rectum he followed by Endo Clip placement. Rest of the, ascending colon, transverse colon, descending colon, sigmoid colon, and rectum appeared normal. Retroflexion was performed in the rectum and no lesions were seen. The patient tolerated the procedure well. IMPRESSION: 1.5 and admitted broad-based ascending colon polyp status post snare polyp rectum he followed by Endo Clip placement Rest of the colon appeared normal. RECOMMENDATIONS: Findings of this examination were discussed with the patient as well as a family. She was advised to follow with the biopsy results. If the biopsy result adenoma she can have a repeat colonoscopy in 3 years.
[2021-11-21 10:27] VITALS: BP 137/86; PULSE 70; RESP 16
== END 2021-11-21 10:43 | disposition home or self-care (01) ==
LOC: ORWHC2ENDO 09:12
PROVIDERS: ATTEND Internal Medicine Gastroenterology
DX: Z79.899 Other long term (current) drug therapy (principal); Z12.11 Encounter for screening for malignant neoplasm of colon; D12.2 Benign neoplasm of ascending colon; J45.909 Unspecified asthma, uncomplicated; Z88.0 Allergy status to penicillin
CPT/HCPCS: 88305; 45385; J2405; J2001; J2704; 45382

== ENCOUNTER → 2022-05-11 | Outpatient (CLI) | payer BC ==
--- NOTE | 2022-05-11 15:36 | USB ---
Reason for Exam: Follow-up at short interval from prior study. Patient History: Menarche at age 13. First Full-Term at age 22. Hysterectomy at age 52. Postmenopausal. Hormonal Contraceptives, starting at age 19 for 30 years. 03/08/2016, Benign Core Biopsy on the left side. Paternal grandmother had breast cancer. Paternal aunt had breast cancer. Risk Values: Loren 5 year model risk: 1.3%. NCI Lifetime model risk: 8.5%. Technique: Method: Targeted. Prior Study Comparison: 06/30/2019 Bilateral Screening Mammogram, [facility]. 11/07/2020 Bilateral Screening Mammogram, [facility]. 11/09/2021 Bilateral Diagnostic Mammogram, [facility]. Findings: The lower section of the breast of the right breast was scanned. At the 7:00 position 3 cm from the nipple is a hypoechoic area with smooth margins and through transmission measuring 0.9 x 0.3 x 0.8 cm. Previous measurement 0.9 x 0.4 x 0.7 cm. Continued Follow-up is recommended. At the 4:00 position right breast 6 cm from nipple is a anechoic area measuring 0.6 x 0.3 x 0.8 cm. Previous measurement 0.7 x 0.4 x 0.7 cm. This appears similar in comparison. Continued follow-up can be performed. Overall Assessment: Probably benign, BI-RAD 3 Management: Screening Mammogram of both breasts in 6 months. Diagnostic Breast Ultrasound of the right breast in 6 months. A clinical breast exam by your physician is recommended on an annual basis and results should be correlated with mammographic findings. Electronically signed and approved by: Sual Aguilera D.O. Radiologis
== END | disposition home or self-care (01) ==
LOC: RADUSWWP 14:40
PROVIDERS: ATTEND Obstetrics & Gynecology
DX: R92.8 Other abnormal and inconclusive findings on diagnostic imaging of breast (principal)

== ENCOUNTER → 2023-11-13 | Outpatient (CLI) | payer BC ==
--- NOTE | 2023-11-14 19:42 | MM ---
Reason for Exam: Screening (asymptomatic). Last screening mammogram was performed 12 month(s) ago. Patient History: Menarche at age 13. First Full-Term at age 22. Hysterectomy at age 52. Postmenopausal. Hormonal Contraceptives, starting at age 19 for 30 years. 03/08/2016, Benign Core Biopsy on the left side. Paternal grandmother had breast cancer. Paternal aunt had breast cancer. Risk Values: Loren 5 year model risk: 1.4%. NCI Lifetime model risk: 8.1%. Prior Study Comparison: 11/07/2020 Bilateral Screening Mammogram, [facility]. 11/09/2021 Bilateral Diagnostic Mammogram, [facility]. 11/09/2022 Bilateral MG 3D diag mammo w/cad SARAH, [facility]. Tissue Density: The breast tissue is heterogeneously dense. This may lower the sensitivity of mammography. Findings: Analyzed By CAD. Microclip left breast from prior biopsy. Unchanged grouped calcifications laterally on the left. Unchanged areas of asymmetric density on the left. There is no suspicious group of microcalcifications or new suspicious mass in either breast. Overall Assessment: Benign, BI-RAD 2 Management: Screening Mammogram of both breasts in 1 year. . Patient should continue monthly self-breast exams. A clinical breast exam by your physician is recommended on an annual basis. This exam should not preclude additional follow-up of suspicious palpable abnormalities. Note on Loren scores and lifetime risk: 1. A Loren score greater than 3% is considered moderate risk. If this is the case, consider specialist referral to assess eligibility for a risk reducing agent. 2. If overall lifetime risk for the development of breast cancer is 20% or higher, the patient may qualify for future screening with alternating mammogram and breast MRI. Electronically signed and approved by: Colin Dickson M.D. Radiologist
== END | disposition home or self-care (01) ==
LOC: RADMAMWWP 14:02
PROVIDERS: ATTEND Obstetrics & Gynecology
DX: Z12.31 Encounter for screening mammogram for malignant neoplasm of breast (principal); Z78.0 Asymptomatic menopausal state; Z80.3 Family history of malignant neoplasm of breast
CPT/HCPCS: 77063; 77067

== ENCOUNTER → 2024-12-14 | Outpatient (CLI) | payer BC ==
--- NOTE | 2024-12-14 15:17 | MM ---
Reason for Exam: Screening (asymptomatic). Last mammogram was performed 1 year(s) and 1 month(s) ago. Patient History: Menarche at age 13. First Full-Term at age 22. Hysterectomy at age 52. Postmenopausal. Hormonal Contraceptives, starting at age 19 for 30 years. 03/08/2016, Benign Core Biopsy on the left side. Paternal grandmother had breast cancer. Paternal aunt had breast cancer. Risk Values: Loren 5 year model risk: 1.5%. NCI Lifetime model risk: 7.9%. Prior Study Comparison: 11/09/2021 Bilateral Diagnostic Mammogram, [facility]. 11/09/2022 Bilateral MG 3D diag mammo w/cad SARAH, [facility]. 11/13/2023 Bilateral MG 3D screening mammo w/cad, [facility]. Tissue Density: The breasts are heterogeneously dense, which may obscure small masses. Findings: Analyzed By CAD. There is no suspicious group of microcalcifications or new suspicious mass in either breast. Overall Assessment: Benign, BI-RAD 2 Management: Screening Mammogram of both breasts in 1 year. . Patient should continue monthly self-breast exams. A clinical breast exam by your physician is recommended on an annual basis. This exam should not preclude additional follow-up of suspicious palpable abnormalities. Note on Loren scores and lifetime risk: 1. A Loren score greater than 3% is considered moderate risk. If this is the case, consider specialist referral to assess eligibility for a risk reducing agent. 2. If overall lifetime risk for the development of breast cancer is 20% or higher, the patient may qualify for future screening with alternating mammogram and breast MRI. [facility], , 12/14/2024 3:13 PM. Electronically signed and approved by: Ketan Lorenzo M.D. Radiologis
== END | disposition home or self-care (01) ==
LOC: RADMAMWWP 14:44
PROVIDERS: ATTEND Obstetrics & Gynecology
DX: Z12.31 Encounter for screening mammogram for malignant neoplasm of breast (principal); R92.333 Mammographic heterogeneous density, bilateral breasts; Z78.0 Asymptomatic menopausal state; Z80.3 Family history of malignant neoplasm of breast; Z92.0 Personal history of contraception
CPT/HCPCS: 77063; 77067

== ENCOUNTER → 2024-12-23 | Outpatient (CLI) | payer BC ==
--- NOTE | 2024-12-23 16:51 | BD ---
EXAMINATION TYPE: Axial Bone Density DATE OF EXAM: 12/23/2024 CLINICAL HISTORY: 59 years old Female. ICD-10 CODE: N95.1 POST MENOPAUSAL SX , Additional History: Height: 5 ft 4 in Weight: 168 FRAX RISK QUESTIONS: Alcohol (3 or more units per day): no Family History (Parent hip fracture): yes Glucocorticoids (More than 3mos): no (Ex: prednisone, prednisolone, methylprednisolone, dexamethasone, and hydrocortisone). History of Fracture in Adulthood: no Secondary Osteoporosis: 1. Type 1 Diabetes: no 2. Hyperthyroidism: no 3. Menopause before 45: no 4. Malnutrition: no 5. Chronic liver disease: no Rheumatoid Arthritis: no Current Tobacco Use: no RISK FACTORS HISTORY OF: Surgery to Spine/Hip(right/left)/Wrist (right/left): no MEDICATIONS: Thyroid Medications: none Osteoporosis Medications: none EXAM MEASUREMENTS: Bone mineral densitometry was performed using the [employer]. Bone mineral density as measured about the Lumbar spine is: ----- L1-L4(G/cm2): 1.353 T Score Values are as follows: ----- L1: 0.2 ----- L2: 0.9 ----- L3: 1.9 ----- L4: 2.3 ----- L1-L4: 1.4 Z Score Values are as follows: ----- L1: 0.9 ----- L2: 1.7 ----- L3: 2.6 ----- L4: 3.0 ----- L1-L4: 2.2 baseline Bone mineral density about the R hip (g/cm2): 0.980 Bone mineral density about the L hip (g/cm2): 0.941 T Score values are as follows: -----R Neck: -0.4 -----L Neck: -0.7 -----R Total: 1.0 -----L Total: 0.7 Z Score values are as follows: -----R Neck: 0.5 -----L Neck: 0.3 -----R Total: 1.6 -----L Total: 1.3 baseline FRAX%s: The graph provided illustrates a 13.1 % chance for a major osteoporotic fx and a 0.3 % chance for the hips probability for fx in 10 years time. IMPRESSION: Normal (Values between +1 and -1 indicate normal bone mass). Consider repeating this study in 5 year s or sooner if there is some new clinical indication. NOTE: T-SCORE=SD OF THE YOUNG ADULT MEAN. [facility], , 12/23/2024 4:48 PM
== END | disposition home or self-care (01) ==
LOC: RADBDWWP 14:55
PROVIDERS: ATTEND Obstetrics & Gynecology
DX: M85.89 Other specified disorders of bone density and structure, multiple sites (principal); N95.1 Menopausal and female climacteric states
CPT/HCPCS: 77080

== ENCOUNTER 2025-01-22 10:46 | Day surgery (SDC) | payer BC ==
[2025-01-20 11:21] VITALS: BMI 28.3
[~2025-01-22 10:46] MED LIST changes: -DEXAMETHASONE SOD PHOSPHATE 10 MG/ML 1 ML VIAL IV ONE; +LACTATED RINGERS 1,000 ML IV SCH; -LIDOCAINE 1% 20 ML VIAL (10MG/ML) FOR IV START INTRADERMA PRN; -MIDAZOLAM 2 MG/2 ML VIAL IV PRN; -MORPHINE SULFATE 4 MG/ML SYRINGE IV PRN; -ONDANSETRON 4 MG/2 ML VIAL IVP ONE; -SCOPOLAMINE 1.5MG/72HR PATCH TRANSDERM ONE; -ceFAZolin IN SWFI 2 GM/20 ML SYRINGE IVP ONE
[2025-01-22 11:31] VITALS: TEMP 97.3
[2025-01-22] MEDS: IV FLUID CONTINUATION 1,000 ML IV ONE ×2 (11:31→12:07)
[2025-01-22] MEDS ORDERED: PROPOFOL 10 MG/ML 20 ML VIAL IV ONE (12:14)
--- NOTE | 2025-01-22 12:28 | P.PCN ---
Date of Procedure: 01/22/25 Procedure(s) Performed: BRIEF HISTORY: Patient is a 59-year-old pleasant white female scheduled for an elective colonoscopy as a part of screening for history of colon polyps. Last colonoscopy was 3 years ago and was noted to have an adenoma. PROCEDURE PERFORMED: Colonoscopy with snare polypectomy. PREOPERATIVE DIAGNOSIS: Screening for history of colon polyps. IV sedation per Anesthesia. PROCEDURE: After informed consent was obtained, the patient, was brought into the endoscopy unit. IV sedation was administered by Anesthesia under continuous monitoring. Digital rectal examination was normal. Initially the Olympus CF-160 flexible video colonoscope was then inserted in the rectum, gradually advanced into the cecum without any difficulty. Careful examination was performed as the scope was gradually being withdrawn. Ileocecal valve and the appendiceal orifice were visualized and appeared normal. Prep was excellent. Mucosa of the cecum, ascending colon, transverse colon, descending colon, sigmoid colon, and rectum appeared normal. In the rectosigmoid colon there was a 5 mm polyp removed by cold snare polypectomy. Retroflexion was performed in the rectum and no lesions were seen. The patient tolerated the procedure well. IMPRESSION: 5 mm rectosigmoid polyp status post cold snare polypectomy. Rest of the colon appeared normal. RECOMMENDATIONS: Findings of this examination were discussed with the patient as well as her family. She was advised to follow with the biopsy results. If the biopsy reveals adenoma she can have repeat colonoscopy in 5 years.
[2025-01-22 12:56] VITALS: BP 134/79; PULSE 75; RESP 18
== END 2025-01-22 13:23 | disposition home or self-care (01) ==
LOC: ORWHC2ENDO 10:46
PROVIDERS: ATTEND Internal Medicine Gastroenterology
DX: Z12.11 Encounter for screening for malignant neoplasm of colon (principal); K62.1 Rectal polyp; Z86.0101 Personal history of adenomatous and serrated colon polyps
CPT/HCPCS: 45385; J2704; 88305